=== PATIENT | male | born 1945 | race Caucasian/White ===

== ENCOUNTER 2019-07-14 18:01 | Emergency (ER) | payer MEDICARE ==
[2019-07-14] MEDS ORDERED: TDAP VACCINE 0.5 ML SUS IM ONE ×2 (18:36→19:22)
[2019-07-14] MEDS ORDERED: SODIUM CHLORIDE 0.9% 1000ML 1,000 ML IV ONE (18:36)
[2019-07-14 18:41] VITALS: RESP 18; TEMP 98.4
[2019-07-14 18:55] LABS: BASOPHILS % (AUTO) 1 % (0-3); EOSINOPHILS % (AUTO) 4 % (0-9); HEMATOCRIT 46 % (39-53); HEMOGLOBIN 14.5 gm/dl (13.5-17.7); LYMPHOCYTES % (AUTO) 19.5 % (10-50); MEAN CORPUSCULAR HEMOGLOBIN 29.2 pg (27.0-32.0); MEAN CORPUSCULAR HGB CONC 31.4 gm/dl (32.0-36.0); MEAN CORPUSCULAR VOLUME 93 fL (80-100); MONOCYTES % (AUTO) 10.8 % (0-12); NEUTROPHILS % (AUTO) 64.9 % (37-80)
[2019-07-14 19:09] LABS: ALBUMIN 3.5 gm/dl (3.4-5.0); BILIRUBIN,TOTAL 0.9 mg/dl (0.2-1.0); CALCIUM 8.4 mg/dl (8.5-10.1); CARBON DIOXIDE 24.1 mEq/L (21-32); CREATININE 0.91 mg/dl (0.80-1.30); TOTAL PROTEIN 6.9 gm/dl (6.4-8.2)
[2019-07-14 19:10] LABS: ALCOHOL 0.089 gm/dl (0.000-0.08)
[2019-07-14] MEDS ORDERED: LIDOCAINE HCL 1% MPF 30 SOL ONE (19:18)
[2019-07-14] MEDS ORDERED: LIDOCAINE HCL 1% MDV 50 ML SOL SC ONE (19:18)
[2019-07-14] MEDS ORDERED: BACITRACIN 500 U/GM OIN TOP ONE ×2 (19:37→19:38)
[2019-07-14 21:02] LABS: APPEARANCE,URINE Clear; BILIRUBIN,URINE NEGATIVE (NEGATIVE); COLOR,URINE Yellow; GLUCOSE, URINE (UA) NEGATIVE (NEGATIVE); KETONES,URINE NEGATIVE (NEGATIVE); LEUKOCYTE ESTERASE ,URINE NEGATIVE (NEGATIVE); NITRATE,URINE NEGATIVE (NEGATIVE); OCCULT BLOOD,URINE NEGATIVE (NEG-TRACE); PH,URINE 5.5; UROBILINOGEN,URINE 0.2 (0.2-1.0 EU)
[2019-07-14 21:16] LABS: EPITHELIAL CELLS 0-3 (SQUAMOUS); RBC,URINE NEG (0-3AV/HPF)
[2019-07-14 21:17] LABS: BACTERIA NEGATIVE (< 1+); CRYSTALS NEGATIVE (0-3 AVE/HPF); WBC,URINE 0-1 (0-5AV/HPF)
[2019-07-14 21:51] VITALS: BP 161/105; PULSE 80; O2SAT 96
== END 2019-07-14 21:45 | disposition home or self-care (01) | DRG 914 ==
LOC: ED 18:01
DX: S87.82XA Crushing injury of left lower leg, initial encounter (principal); V86.59XA Driver of other special all-terrain or other off-road motor vehicle injured in nontraffic accident, initial encounter; S81.812A Laceration without foreign body, left lower leg, initial encounter; R40.2412 Glasgow coma scale score 13-15, at arrival to emergency department
CPT/HCPCS: 12002; 36415; 70450; 71260; 72125; 73590; 73610; 73630; 74177; 80053; 80307; 81001; 83690; 85025; 90471; 90715; 93005; 96365; 99285; 99291; G0390; Q9967; A6232; A6402; A6446; A9270-GY; J2001